=== PATIENT | female | born 1975 | race Caucasian/White ===

== ENCOUNTER 2019-01-03 19:29 | Inpatient (IN) | payer MEDICAID ==
[~2019-01-03] VITALS: Ht 152.4 cm; Wt 62.0 kg
[2019-01-03 19:35] VITALS: Ht 152.4 cm; Wt 62.0 kg
[2019-01-04 01:09] LABS: MAGNESIUM 1.8 mg/dL (1.8-2.4)
[2019-01-04 02:07] LABS: UA SPECIFIC GRAVITY 1.015 (1.005-1.035); microscopic required? YES; urine erythrocyte TRACE (NEGATIVE)
[2019-01-04 02:21] VITALS: BP 146/70
[2019-01-04 02:30] LABS: AMPHETAMINE QUAL UR POSITIVE (See below)
[2019-01-04 05:29] VITALS: BP 117/53
[2019-01-04 11:10] VITALS: BP 115/65
[2019-01-04 17:58] VITALS: BP 118/68
[2019-01-04 20:07] VITALS: BP 103/51
[2019-01-05 06:05] VITALS: BP 112/58
[2019-01-05 06:40] LABS: BASOPHIL % 0.7 % (0-2); PLATELET COUNT 291 x10^3mcL (130-400)
[2019-01-05 06:41] LABS: MAGNESIUM 1.7 mg/dL (1.8-2.4); PHOSPHOROUS 3.9 mg/dL (2.5-4.9)
[2019-01-05 06:44] LABS: RED CELL DISTRIBUTION WIDTH 18.3 % (11.5-14.5)
[2019-01-05 06:46] LABS: CALCIUM 8.4 mg/dL (8.5-10.1); CARBON DIOXIDE 25.1 mmol/L (21-32); CHLORIDE SERUM 103 mmol/L (98-107); CREATININE SERUM 0.5 mg/dL (0.6-1.0); GFR1 > 60 mL/min; GLUCOSE SERUM 101 mg/dL (74-106); POTASSIUM SERUM 3.8 mmol/L (3.5-5.1); SODIUM SERUM 138 mmol/L (136-145)
[2019-01-05 09:12] VITALS: BP 110/58
[2019-01-05 17:42] VITALS: BP 106/51
[2019-01-05 21:48] VITALS: BP 110/58
[2019-01-06 05:22] VITALS: BP 135/73
[2019-01-06 06:15] LABS: BASOPHIL % 0.4 % (0-2); PLATELET COUNT 348 x10^3mcL (130-400)
[2019-01-06 06:20] LABS: RED CELL DISTRIBUTION WIDTH 18.7 % (11.5-14.5)
[2019-01-06 06:23] LABS: CARBON DIOXIDE 27.4 mmol/L (21-32); CHLORIDE SERUM 102 mmol/L (98-107); CREATININE SERUM 0.5 mg/dL (0.6-1.0); GFR1 > 60 mL/min; GLUCOSE SERUM 100 mg/dL (74-106); MAGNESIUM 1.8 mg/dL (1.8-2.4); PHOSPHOROUS 3.9 mg/dL (2.5-4.9); POTASSIUM SERUM 4.1 mmol/L (3.5-5.1); SODIUM SERUM 136 mmol/L (136-145)
[2019-01-06 08:54] VITALS: BP 108/63
[2019-01-06 17:48] VITALS: BP 117/72
[2019-01-06 20:57] VITALS: BP 108/55
[2019-01-07 05:56] VITALS: BP 105/53
[2019-01-07 06:08] LABS: BASOPHIL % 0.4 % (0-2); PLATELET COUNT 348 x10^3mcL (130-400)
[2019-01-07 06:19] LABS: CARBON DIOXIDE 30.5 mmol/L (21-32); CHLORIDE SERUM 102 mmol/L (98-107); CREATININE SERUM 0.5 mg/dL (0.6-1.0); GFR1 > 60 mL/min; GLUCOSE SERUM 92 mg/dL (74-106); MAGNESIUM 1.8 mg/dL (1.8-2.4); PHOSPHOROUS 4.1 mg/dL (2.5-4.9); SODIUM SERUM 137 mmol/L (136-145)
[2019-01-07 06:21] LABS: RED CELL DISTRIBUTION WIDTH 18.6 % (11.5-14.5)
[2019-01-07 09:34] VITALS: BP 117/63
[2019-01-07 18:56] VITALS: BP 127/72
[2019-01-07 19:26] VITALS: BP 105/61
[2019-01-08 05:40] VITALS: BP 99/41
[2019-01-08 06:25] LABS: BASOPHIL % 0.1 % (0-2); PLATELET COUNT 335 x10^3mcL (130-400); RED CELL DISTRIBUTION WIDTH 18.3 % (11.5-14.5)
[2019-01-08 07:15] LABS: CALCIUM 8.6 mg/dL (8.5-10.1); CARBON DIOXIDE 29.1 mmol/L (21-32); CHLORIDE SERUM 101 mmol/L (98-107); CREATININE SERUM 0.5 mg/dL (0.6-1.0); GFR1 > 60 mL/min; GLUCOSE SERUM 97 mg/dL (74-106); MAGNESIUM 1.9 mg/dL (1.8-2.4); PHOSPHOROUS 3.9 mg/dL (2.5-4.9); SODIUM SERUM 137 mmol/L (136-145)
[2019-01-08 09:17] VITALS: BP 120/67
[2019-01-08 17:09] VITALS: BP 129/66
[2019-01-08 19:38] VITALS: BP 120/52
[2019-01-09 04:24] VITALS: BP 120/69
[2019-01-09 06:06] LABS: BASOPHIL % 0.5 % (0-2); PLATELET COUNT 375 x10^3mcL (130-400)
[2019-01-09 06:28] LABS: RED CELL DISTRIBUTION WIDTH 18.8 % (11.5-14.5)
[2019-01-09 06:44] LABS: CALCIUM 9.4 mg/dL (8.5-10.1); CARBON DIOXIDE 27.8 mmol/L (21-32); CHLORIDE SERUM 102 mmol/L (98-107); CREATININE SERUM 0.5 mg/dL (0.6-1.0); GFR1 > 60 mL/min; GLUCOSE SERUM 94 mg/dL (74-106); MAGNESIUM 1.7 mg/dL (1.8-2.4); PHOSPHOROUS 3.8 mg/dL (2.5-4.9); POTASSIUM SERUM 4.1 mmol/L (3.5-5.1); SODIUM SERUM 137 mmol/L (136-145)
[2019-01-09 08:50] VITALS: BP 137/74
[2019-01-09 17:12] VITALS: BP 119/62
[2019-01-09 21:26] VITALS: BP 124/70
[2019-01-10 05:57] VITALS: BP 125/68
[2019-01-10 06:52] LABS: BASOPHIL % 0.4 % (0-2); PLATELET COUNT 392 x10^3mcL (130-400)
[2019-01-10 06:55] LABS: RED CELL DISTRIBUTION WIDTH 18.9 % (11.5-14.5)
[2019-01-10 07:27] LABS: CALCIUM 9.5 mg/dL (8.5-10.1); CARBON DIOXIDE 25.7 mmol/L (21-32); CHLORIDE SERUM 102 mmol/L (98-107); CREATININE SERUM 0.5 mg/dL (0.6-1.0); GFR1 > 60 mL/min; GLUCOSE SERUM 95 mg/dL (74-106); MAGNESIUM 1.9 mg/dL (1.8-2.4); PHOSPHOROUS 4.2 mg/dL (2.5-4.9); POTASSIUM SERUM 4.4 mmol/L (3.5-5.1); SODIUM SERUM 137 mmol/L (136-145)
[2019-01-10 09:42] VITALS: BP 108/48
[2019-01-10 16:32] VITALS: BP 106/54
[2019-01-10 20:41] VITALS: BP 104/57
[2019-01-11 06:13] VITALS: BP 123/77
[2019-01-11 06:55] LABS: BASOPHIL % 0.4 % (0-2); CALCIUM 9.5 mg/dL (8.5-10.1); CARBON DIOXIDE 25.7 mmol/L (21-32); CHLORIDE SERUM 99 mmol/L (98-107); CREATININE SERUM 0.5 mg/dL (0.6-1.0); GFR1 > 60 mL/min; GLUCOSE SERUM 95 mg/dL (74-106); POTASSIUM SERUM 3.6 mmol/L (3.5-5.1); SODIUM SERUM 127 mmol/L (136-145)
[2019-01-11 07:09] LABS: PLATELET COUNT 408 x10^3mcL (130-400); RED CELL DISTRIBUTION WIDTH 18.7 % (11.5-14.5)
[2019-01-11 16:10] VITALS: BP 133/70
[2019-01-11 18:15] VITALS: BP 153/49
[2019-01-11 21:00] VITALS: BP 111/54
[2019-01-12 05:49] VITALS: BP 108/55
[2019-01-12 06:22] LABS: CALCIUM 8.9 mg/dL (8.5-10.1); CHLORIDE SERUM 105 mmol/L (98-107); CREATININE SERUM 0.5 mg/dL (0.6-1.0); GFR1 > 60 mL/min; GLUCOSE SERUM 103 mg/dL (74-106); POTASSIUM SERUM 4.2 mmol/L (3.5-5.1); SODIUM SERUM 140 mmol/L (136-145)
[2019-01-12 07:36] LABS: BASOPHIL % 0.4 % (0-2); PLATELET COUNT 343 x10^3mcL (130-400)
[2019-01-12 07:43] LABS: RED CELL DISTRIBUTION WIDTH 19.1 % (11.5-14.5)
[2019-01-12 08:43] VITALS: BP 123/69
[2019-01-12 09:49] LABS: rbc morphology (normal/abnorm) ABNORMAL (NORMAL)
[2019-01-12 09:50] LABS: ovalocyte/elliptocyte 2+
[2019-01-12 13:36] LABS: rbc morphology (normal/abnorm) ABNORMAL (NORMAL)
[2019-01-12 16:35] VITALS: BP 130/66
[2019-01-12 19:53] VITALS: BP 122/56
[2019-01-13 05:12] VITALS: BP 132/70
[2019-01-13 06:06] LABS: BASOPHIL % 0.4 % (0-2); PLATELET COUNT 331 x10^3mcL (130-400)
[2019-01-13 06:40] LABS: CALCIUM 9.2 mg/dL (8.5-10.1); CARBON DIOXIDE 28.4 mmol/L (21-32); CHLORIDE SERUM 104 mmol/L (98-107); CREATININE SERUM 0.5 mg/dL (0.6-1.0); GFR1 > 60 mL/min; GLUCOSE SERUM 99 mg/dL (74-106); MAGNESIUM 1.7 mg/dL (1.8-2.4); PHOSPHOROUS 4.2 mg/dL (2.5-4.9); POTASSIUM SERUM 4.3 mmol/L (3.5-5.1); SODIUM SERUM 140 mmol/L (136-145)
[2019-01-13 08:41] VITALS: BP 123/60
[2019-01-13 16:22] VITALS: BP 124/70
[2019-01-13 21:59] VITALS: BP 132/64
[2019-01-14 06:11] VITALS: BP 141/77
[2019-01-14 09:09] VITALS: BP 125/69
[2019-01-14 16:59] VITALS: BP 106/88
[2019-01-14 20:52] VITALS: BP 118/55
[2019-01-15 05:34] VITALS: BP 124/65
[2019-01-15 07:12] LABS: BASOPHIL % 0.5 % (0-2)
[2019-01-15 07:17] LABS: CALCIUM 9.3 mg/dL (8.5-10.1); CARBON DIOXIDE 31.4 mmol/L (21-32); CHLORIDE SERUM 103 mmol/L (98-107); CREATININE SERUM 0.6 mg/dL (0.6-1.0); GFR1 > 60 mL/min; GLUCOSE SERUM 101 mg/dL (74-106); POTASSIUM SERUM 4.5 mmol/L (3.5-5.1); SODIUM SERUM 139 mmol/L (136-145)
[2019-01-15 07:18] LABS: PLATELET COUNT 415 x10^3mcL (130-400)
[2019-01-15 09:00] VITALS: BP 116/64
[2019-01-15 18:10] VITALS: BP 133/69
[2019-01-15 21:32] VITALS: BP 138/64
[2019-01-16 05:44] VITALS: BP 123/72
[2019-01-16 07:37] LABS: CALCIUM 9.6 mg/dL (8.5-10.1); CARBON DIOXIDE 29.6 mmol/L (21-32); CHLORIDE SERUM 101 mmol/L (98-107); CREATININE SERUM 0.6 mg/dL (0.6-1.0); GFR1 > 60 mL/min; GLUCOSE SERUM 95 mg/dL (74-106); POTASSIUM SERUM 4.3 mmol/L (3.5-5.1); SODIUM SERUM 138 mmol/L (136-145)
[2019-01-16 08:10] LABS: BASOPHIL % 0.5 % (0-2)
[2019-01-16 08:11] LABS: PLATELET COUNT 447 x10^3mcL (130-400); RED CELL DISTRIBUTION WIDTH 17.5 % (11.5-14.5)
[2019-01-16 09:06] VITALS: BP 117/68
[2019-01-16 16:13] VITALS: BP 124/72
[2019-01-16 21:00] VITALS: BP 116/69
[2019-01-17 06:19] VITALS: BP 130/75
[2019-01-17 09:15] VITALS: BP 113/65
[2019-01-17 17:25] VITALS: BP 112/62
[2019-01-17 19:37] VITALS: BP 125/71
[2019-01-18 04:19] VITALS: BP 212/80
[2019-01-18 07:40] VITALS: BP 114/56
[2019-01-18 17:51] VITALS: BP 122/81
[2019-01-18 19:37] VITALS: BP 128/69
[2019-01-19 04:33] VITALS: BP 134/75
[2019-01-19 09:56] VITALS: BP 115/59
[2019-01-19 17:55] VITALS: BP 133/72
[2019-01-19 22:45] VITALS: BP 132/73
[2019-01-20 05:35] VITALS: BP 134/56
[2019-01-20 08:39] VITALS: BP 106/76
[2019-01-20 17:28] VITALS: BP 108/69
[2019-01-20 21:12] VITALS: BP 127/64
[2019-01-21 05:29] VITALS: BP 134/77
[2019-01-21 09:04] VITALS: BP 114/58
[2019-01-21] MEDS ORDERED: ECOTRIN81 M2 PO (12:18)
[2019-01-21 13:00] VITALS: BP 114/58
== END 2019-01-21 16:34 | disposition home or self-care (01) | DRG 314 ==
LOC: ED 19:29 → MU 01-04 00:42 → EDBEDREQ 01-04 00:42 → MU 01-04 01:53
PROVIDERS: General Practice; Internal Medicine; Podiatrist Foot & Ankle Surgery; ADMIT Family Medicine
PROC: 0QSP04Z Reposition Left Metatarsal with Internal Fixation Device, Open Approach (ICD-10-PCS; principal; 2019-01-07 13:00)
PROC: 0QSL04Z Reposition Right Tarsal with Internal Fixation Device, Open Approach (ICD-10-PCS; 2019-01-11)
PROC: 30233N1 Transfusion of Nonautologous Red Blood Cells into Peripheral Vein, Percutaneous Approach (ICD-10-PCS; 2019-01-12)
DX: S92.332A Displaced fracture of third metatarsal bone, left foot, initial encounter for closed fracture (principal); D62 Acute posthemorrhagic anemia; S92.001A Unspecified fracture of right calcaneus, initial encounter for closed fracture; E83.42 Hypomagnesemia; S92.342A Displaced fracture of fourth metatarsal bone, left foot, initial encounter for closed fracture; S92.101A Unspecified fracture of right talus, initial encounter for closed fracture; S92.211A Displaced fracture of cuboid bone of right foot, initial encounter for closed fracture; F15.10 Other stimulant abuse, uncomplicated; Z68.25 Body mass index [BMI] 25.0-25.9, adult; W10.8XXA Fall (on) (from) other stairs and steps, initial encounter; Y93.E2 Activity, laundry; Y92.038 Other place in apartment as the place of occurrence of the external cause
CPT/HCPCS: 76001; 82962; 97110-GP; 97530-GP; C1713; J0295; J0690; J1170; J1644; J1650; J1885; J2175; J2250; J2405; J2704; J3010; J3490; J7030; J7040; J7050; J7120; P9016; Q0092; Q0162; Q0163